=== PATIENT | female | born 1990 | race Caucasian/White ===

== ENCOUNTER 2023-03-05 17:11 | Inpatient (IN) | payer OTHER ==
[2023-03-05 19:35] VITALS: BMI 28.4
[2023-03-05] MEDS ORDERED: guaiFENesin 600 MG TABLET.ER (FP) PO PRN (19:45)
[2023-03-05] MEDS ORDERED: LOPERAMIDE HCL 2 MG CAPSULE PO PRN (19:45)
[2023-03-05] MEDS ORDERED: BUPRENORPHINE HCL 150 MCG, BUPRENORPHINE HCL 75 MCG BC ONE (19:45)
[2023-03-05] MEDS ORDERED: BISMUTH SUBSALICYLATE 524 MG/30 ML PO PRN (19:45)
[2023-03-05] MEDS ORDERED: POLYETHYLENE GLYCOL (HEALTHYLAX) 3350 17 GM PACKET PO PRN (19:45)
[2023-03-05] MEDS ORDERED: BUPRENORPHINE HCL 150 MCG, BUPRENORPHINE HCL 75 MCG BC PRN (19:45)
[2023-03-05] MEDS ORDERED: IBUPROFEN 400 MG TABLET (FP) PO PRN (19:45)
[2023-03-05] MEDS ORDERED: ONDANSETRON *ODT* 4 MG TABLET SL PRN (19:45)
[2023-03-05] MEDS ORDERED: ACETAMINOPHEN 325 MG TABLET (FP) PO PRN (19:45)
[2023-03-05] MEDS ORDERED: NALOXONE HCL (KLOXXADO) 8 MG SPRAY NS PRN (19:45)
[2023-03-05] MEDS ORDERED: BENZOCAINE/MENTHOL (CHLORASEPTIC ) LOZENGE MM PRN (19:45)
[2023-03-05] MEDS ORDERED: DICYCLOMINE HCL 10 MG CAPSULE PO PRN (19:45)
[2023-03-05] MEDS ORDERED: NALOXONE HCL 0.4 MG/ML VIAL IM PRN (19:45)
[2023-03-05] MEDS ORDERED: NICOTINE POLACRILEX 2 MG GUM BUC PRN (19:45)
[2023-03-05] MEDS ORDERED: BENZONATATE 200 MG CAPSULE PO PRN (19:45)
[2023-03-05] MEDS ORDERED: cloNIDine HCL 0.1 MG TABLET PO ONE (19:45)
[2023-03-05] MEDS ORDERED: MAGNESIUM HYDROX 2400MG/30ML ORAL SUSPENSION 30 ML CUP PO PRN (19:45)
[2023-03-05] MEDS ORDERED: MAG HYDROX/AL HYDROX/SIMETH 30 ML UNIT-DOSE CUP PO PRN (19:45)
[2023-03-05] MEDS ORDERED: cloNIDine HCL 0.1 MG TABLET ONE (20:18)
[2023-03-05] MEDS ORDERED: BUPRENORPHINE HCL 150 MCG FILM BC ONE (20:20)
[2023-03-05] MEDS ORDERED: BUPRENORPHINE HCL 75 MCG FILM BC ONE (20:20)
[2023-03-05] MEDS: MELATONIN 5 MG TABLETS PO SCH (22:34)
[2023-03-05] MEDS: diazePAM 5 MG TABLET PO PRN (22:34)
[2023-03-05] MEDS: THIAMINE HCL 100 MG TABLET (FP) PO SCH (22:35)
[2023-03-05] MEDS ORDERED: levETIRAcetam 500 MG TABLET (FP) PO ONE (22:56)
[2023-03-05] MEDS ORDERED: ALBUTEROL SO4 HFA INHALER IH PRN (22:57)
[2023-03-05] MEDS: hydrOXYzine PAMOATE 25 MG CAPSULE (FP) PO PRN (23:13)
[2023-03-05] MEDS: METHOCARBAMOL 500 MG TABLET PO PRN (23:13)
[2023-03-05] MEDS ORDERED: cloNIDine HCL 0.1 MG TABLET PO PRN (23:45)
[2023-03-06] MEDS ORDERED: BUPRENORPHINE HCL 150 MCG, BUPRENORPHINE HCL 75 MCG BC PRN
[2023-03-06] MEDS: BUPRENORPHINE HCL 150 MCG, BUPRENORPHINE HCL 75 MCG BC SCH ×3 (06:05→17:25)
[2023-03-06] MEDS ORDERED: ALBUTEROL SO4 0.083% IH SOL 2.5 MG/3 ML VIAL.NEB. NEB PRN (08:33)
[2023-03-06] MEDS ORDERED: NICOTINE 14 MG/24 HOURS TOPICAL PATCH TD SCH (10:00)
[2023-03-06] MEDS ORDERED: amLODIPine BESYLATE 2.5 MG TABLET (FP) PO SCH (10:00)
[2023-03-06] MEDS: diazePAM 5 MG TABLET PO PRN ×2 (10:25→22:45)
[2023-03-06] MEDS: PRENATAL VITAMINS W/ FOLIC ACID TABLET (FP) PO SCH (10:25)
[2023-03-06] MEDS: levETIRAcetam 500 MG TABLET (FP) PO SCH ×2 (10:25→22:40)
[2023-03-06] MEDS: cloNIDine HCL 0.1 MG TABLET PO PRN ×2 (13:08→22:44)
[2023-03-06] MEDS: NICOTINE 14 MG/24 HOURS TOPICAL PATCH TD PRN (13:53)
[2023-03-06] MEDS: METHOCARBAMOL 500 MG TABLET PO PRN (17:24)
[2023-03-06] MEDS: hydrOXYzine PAMOATE 25 MG CAPSULE (FP) PO PRN (17:24)
[2023-03-06] MEDS: THIAMINE HCL 100 MG TABLET (FP) PO SCH (22:40)
[2023-03-06] MEDS: MELATONIN 5 MG TABLETS PO SCH (22:40)
[2023-03-06] MEDS: IBUPROFEN 600 MG TABLET (FP) PO PRN (22:44)
[2023-03-07] MEDS: BUPRENORPHINE HCL 450 MCG FILM BC SCH ×2 (06:10→17:52)
[2023-03-07] MEDS: diazePAM 5 MG TABLET PO PRN (10:04)
[2023-03-07] MEDS: levETIRAcetam 500 MG TABLET (FP) PO SCH ×2 (10:04→22:44)
[2023-03-07] MEDS: amLODIPine BESYLATE 5 MG TABLET (FP) PO SCH (10:04)
[2023-03-07] MEDS: NICOTINE 14 MG/24 HOURS TOPICAL PATCH TD PRN (10:04)
[2023-03-07] MEDS: cloNIDine HCL 0.1 MG TABLET PO PRN (10:04)
[2023-03-07] MEDS: METHOCARBAMOL 500 MG TABLET PO PRN ×2 (10:04→18:02)
[2023-03-07] MEDS: PRENATAL VITAMINS W/ FOLIC ACID TABLET (FP) PO SCH (10:04)
[2023-03-07] MEDS: IBUPROFEN 600 MG TABLET (FP) PO PRN (18:02)
[2023-03-07] MEDS: hydrOXYzine PAMOATE 25 MG CAPSULE (FP) PO PRN (22:44)
[2023-03-07] MEDS: MELATONIN 5 MG TABLETS PO SCH (22:44)
[2023-03-07] MEDS: THIAMINE HCL 100 MG TABLET (FP) PO SCH (22:44)
[2023-03-08] MEDS: BUPRENORPHINE/NALOXONE 4 MG/1 MG FILM PACKET SL SCH ×2 (06:00→18:09)
[2023-03-08] MEDS: PRENATAL VITAMINS W/ FOLIC ACID TABLET (FP) PO SCH (10:14)
[2023-03-08] MEDS: amLODIPine BESYLATE 5 MG TABLET (FP) PO SCH (10:15)
[2023-03-08] MEDS: levETIRAcetam 500 MG TABLET (FP) PO SCH ×2 (10:15→23:13)
[2023-03-08 13:35] VITALS: RESP 18
[2023-03-08] MEDS: THIAMINE HCL 100 MG TABLET (FP) PO SCH (23:13)
[2023-03-08] MEDS: MELATONIN 5 MG TABLETS PO SCH (23:14)
[2023-03-08] MEDS: METHOCARBAMOL 500 MG TABLET PO PRN (23:44)
[2023-03-08] MEDS: hydrOXYzine PAMOATE 25 MG CAPSULE (FP) PO PRN (23:45)
[2023-03-08] MEDS: cloNIDine HCL 0.1 MG TABLET PO PRN (23:45)
[2023-03-08] MEDS: IBUPROFEN 600 MG TABLET (FP) PO PRN (23:46)
[2023-03-09] MEDS ORDERED: BUPRENORPHINE/NALOXONE 8 MG/2 MG FILM PACKET SL ONE (06:00)
[2023-03-09] MEDS: amLODIPine BESYLATE 5 MG TABLET (FP) PO SCH (09:53)
[2023-03-09] MEDS: PRENATAL VITAMINS W/ FOLIC ACID TABLET (FP) PO SCH (09:53)
[2023-03-09] MEDS: levETIRAcetam 500 MG TABLET (FP) PO SCH (09:53)
[2023-03-09 10:01] VITALS: BP 142/89; PULSE 90; TEMP 97.7
== END 2023-03-09 10:39 | disposition home or self-care (01) | DRG 773 ==
LOC: YASAS 17:11 → Y6N 20:42
PROVIDERS: ADMIT Allergy & Immunology; ATTEND Surgery
PROC: HZ2ZZZZ Detoxification Services for Substance Abuse Treatment (ICD-10-PCS; principal; 2023-03-05)
DX: F11.23 Opioid dependence with withdrawal (principal); F17.213 Nicotine dependence, cigarettes, with withdrawal; F43.10 Post-traumatic stress disorder, unspecified; F60.3 Borderline personality disorder; I10 Essential (primary) hypertension; G40.909 Epilepsy, unspecified, not intractable, without status epilepticus; J45.20 Mild intermittent asthma, uncomplicated; Z88.0 Allergy status to penicillin; Z56.0 Unemployment, unspecified; Z59.00 Homelessness unspecified
CPT/HCPCS: 80305; 81025; 87635